=== PATIENT | male | born 1970 | race Caucasian/White ===

== ENCOUNTER 2020-12-17 18:41 | Inpatient (IN) | payer BC ==
[2020-12-17] MEDS ORDERED: Ondansetron PF 4 MG/2 ML Vial IVP PRN (20:46)
[2020-12-17] MEDS ORDERED: Guaifenesin DM 100-10/5 ML UDCUP PO PRN (20:46)
[2020-12-17] MEDS ORDERED: Ondansetron ODT 4 MG TAB PO PRN (20:46)
[2020-12-17] MEDS ORDERED: Senokot S 8.6-50 MG TAB PO PRN (20:46)
[2020-12-17] MEDS ORDERED: Calcium Carbonate 500 MG ChewTAB PO PRN (20:46)
[2020-12-17] MEDS ORDERED: Acetaminophen 325 MG TAB PO PRN (20:46)
[2020-12-17] MEDS ORDERED: Bisacodyl 5 MG TAB PO PRN (20:46)
[2020-12-17] MEDS ORDERED: Dextrose 50% Abboject 50 ML SYRINGE SLOW IVP PRN (21:01)
[2020-12-17] MEDS ORDERED: Dextrose 5% in Water 1,000 ML IV PRN (21:01)
[2020-12-17 22:20] VITALS: BMI 35.3
[2020-12-17 22:25] LABS: Anion Gap 13 mmol/L (10-20); BUN (Urea Nitrogen) 12 mg/dL (8.4-25.7); Calc. Creatinine Clearance 215 mL/min (70-130); Calcium 8.5 mg/dL (7.8-10.44); Carbon Dioxide 29 mmol/L (22-29); Chloride 99 mmol/L (98-107); Glucose 238 mg/dL (70-105); Magnesium 1.6 mg/dL (1.6-2.6); Potassium 3.6 mmol/L (3.5-5.1); Sodium 137 mmol/L (136-145)
[2020-12-17] MEDS ORDERED: Zolpidem Tartrate 5 MG TAB PO SCH (23:00)
[2020-12-17] MEDS ORDERED: Gabapentin 300 MG CAP PO SCH ×2 (23:00→23:15)
[2020-12-17] MEDS: Melatonin 3 MG TAB PO SCH (23:10)
[2020-12-18] MEDS: HumaLOG 300 UNITS/3 ML VIAL SC PRN ×4 (05:33→20:34)
[2020-12-18 06:24] LABS: #Lymphocytes 2.8 thou/uL (1.20-3.40); #Neutrophils 6.3 thou/uL (1.40-6.50); %Basophils 0.2 % (0.0-1.0); %Eosinophils 0.4 % (0.0-10.0); %Lymphocytes 27.4 % (21.0-51.0); Hemoglobin 12.8 g/dL (14.0-18.0); Mean Corpuscular HGB CONC 32.2 g/dL (32.0-36.0); Mean Corpuscular Hemoglobin 29.8 pg (27.0-31.0); Mean Corpuscular Volume 92.6 fL (78.0-98.0); Platelet Count 632 thou/uL (130-400); Red Blood Cell (RBC) Count 4.28 mill/uL (4.70-6.10); White Blood Cell (WBC) Count 10.2 thou/uL (4.8-10.8)
[2020-12-18 06:37] LABS: Anion Gap 13 mmol/L (10-20); BUN (Urea Nitrogen) 11 mg/dL (8.4-25.7); Calc. Creatinine Clearance 226 mL/min (70-130); Calcium 8.4 mg/dL (7.8-10.44); Carbon Dioxide 30 mmol/L (22-29); Chloride 99 mmol/L (98-107); Glucose 207 mg/dL (70-105); Potassium 3.5 mmol/L (3.5-5.1); Sodium 138 mmol/L (136-145)
[2020-12-18 06:49] LABS: Bacteria/HPF None Seen HPF (None Seen); Bilirubin Negative (Negative); Blood, Urine Negative (Negative); Clarity Clear (Clear); Glucose, Urine (Dipstick) 100 mg/dL (Negative); Ketone, Urine Negative (Negative); Leukocyte 75 Leu/uL (Negative); Nitrite Negative (Negative); Protein, Urine (Dipstick) 20 mg/dL (Neg-Trace); RBC/HPF 0-3 HPF (0-3); Specific Gravity, Urine 1.032 (1.002-1.036); Squamous Epithelial 0-3 HPF (0-3); Urobilinogen 3 mg/dL (Less than 2); WBC/HPF 21-50 HPF (0-3)
[2020-12-18] MEDS: DULoxetine 60 MG CAP PO SCH (08:25)
[2020-12-18] MEDS: Cholecalciferol 1,000 UNITS (25 MCG) TAB PO SCH (08:25)
[2020-12-18] MEDS: Gabapentin 300 MG CAP PO SCH ×2 (08:25→20:32)
[2020-12-18] MEDS: Multivitamin W/ Minerals 1 TAB PO SCH (08:26)
[2020-12-18] MEDS: Tamsulosin HCl 0.4 MG CAP PO SCH (08:26)
[2020-12-18] MEDS: METHadone HCl 10 MG TAB PO SCH (08:26)
[2020-12-18] MEDS: Losartan 25 MG TAB PO SCH (08:26)
[2020-12-18] MEDS: Aspirin 81 mg Enteric Coated Tablet PO SCH (08:27)
[2020-12-18] MEDS: Benzonatate 100 MG CAP PO PRN (08:27)
[2020-12-18] MEDS: Zinc Sulfate 220 MG CAP PO SCH (08:27)
[2020-12-18] MEDS: Hydrochlorothiazide 25 MG TAB PO SCH (08:27)
[2020-12-18] MEDS: Ascorbic Acid 500 mg Chewable Tablet PO SCH (08:27)
[2020-12-18] MEDS: Enoxaparin Sodium 40 MG/0.4 ML SYRINGE SC SCH (08:28)
[2020-12-18] MEDS ORDERED: Dexamethasone 4 mg/ml Vial SLOW IVP SCH (09:00)
[2020-12-18] MEDS: metFORMIN 500 MG TAB PO SCH (16:15)
[2020-12-18] MEDS ORDERED: cefTRIAXone\\ROCEPHIN 2 GM in Sodium Chloride 0.9% 100 ML IVPB SCH (17:00)
[2020-12-18] MEDS: Azithromycin 500 MG in Sodium Chloride 0.9% 250 ML 250 ML IVPB SCH (17:45)
[2020-12-18] MEDS: Zolpidem Tartrate 5 MG TAB PO SCH (20:33)
[2020-12-18] MEDS: Melatonin 3 MG TAB PO SCH (20:34)
[2020-12-19] MEDS: Albuterol 200 PUFF (6.7GM INHALER) INH PRN ×2 (03:22→14:00)
[2020-12-19] MEDS: Benzonatate 100 MG CAP PO PRN (03:22)
[2020-12-19] MEDS: HumaLOG 300 UNITS/3 ML VIAL SC PRN ×4 (05:58→21:05)
[2020-12-19] MEDS: Zinc Sulfate 220 MG CAP PO SCH (08:23)
[2020-12-19] MEDS: Hydrochlorothiazide 25 MG TAB PO SCH (08:23)
[2020-12-19] MEDS: Cholecalciferol 1,000 UNITS (25 MCG) TAB PO SCH (08:23)
[2020-12-19] MEDS: Multivitamin W/ Minerals 1 TAB PO SCH (08:23)
[2020-12-19] MEDS: DULoxetine 60 MG CAP PO SCH (08:23)
[2020-12-19] MEDS: Aspirin 81 mg Enteric Coated Tablet PO SCH (08:23)
[2020-12-19] MEDS: Ascorbic Acid 500 mg Chewable Tablet PO SCH (08:23)
[2020-12-19] MEDS: METHadone HCl 10 MG TAB PO SCH (08:24)
[2020-12-19] MEDS: Tamsulosin HCl 0.4 MG CAP PO SCH (08:24)
[2020-12-19] MEDS: Losartan 25 MG TAB PO SCH (08:24)
[2020-12-19] MEDS: Gabapentin 300 MG CAP PO SCH ×2 (08:25→21:04)
[2020-12-19] MEDS: metFORMIN 500 MG TAB PO SCH ×2 (08:25→16:24)
[2020-12-19] MEDS: Dexamethasone 4 MG TAB PO SCH (08:25)
[2020-12-19] MEDS: Enoxaparin Sodium 40 MG/0.4 ML SYRINGE SC SCH (08:26)
[2020-12-19] MEDS: Azithromycin 500 MG in Sodium Chloride 0.9% 250 ML 250 ML IVPB SCH (17:40)
[2020-12-19] MEDS: Melatonin 3 MG TAB PO SCH (21:04)
[2020-12-19] MEDS: Zolpidem Tartrate 5 MG TAB PO SCH (21:05)
[2020-12-20] MEDS: HumaLOG 300 UNITS/3 ML VIAL SC PRN ×4 (05:47→21:31)
[2020-12-20] MEDS: Cholecalciferol 1,000 UNITS (25 MCG) TAB PO SCH (09:35)
[2020-12-20] MEDS: Enoxaparin Sodium 40 MG/0.4 ML SYRINGE SC SCH (09:35)
[2020-12-20] MEDS: Gabapentin 300 MG CAP PO SCH ×2 (09:36→21:19)
[2020-12-20] MEDS: Zinc Sulfate 220 MG CAP PO SCH (09:37)
[2020-12-20] MEDS: Losartan 25 MG TAB PO SCH (09:37)
[2020-12-20] MEDS: Tamsulosin HCl 0.4 MG CAP PO SCH (09:37)
[2020-12-20] MEDS: Dexamethasone 4 MG TAB PO SCH (09:37)
[2020-12-20] MEDS: DULoxetine 60 MG CAP PO SCH (09:37)
[2020-12-20] MEDS: metFORMIN 500 MG TAB PO SCH ×2 (09:37→16:37)
[2020-12-20] MEDS: Bacitracin 1 PK TOP SCH (09:38)
[2020-12-20] MEDS: Ascorbic Acid 500 mg Chewable Tablet PO SCH (09:38)
[2020-12-20] MEDS: Hydrochlorothiazide 25 MG TAB PO SCH (09:38)
[2020-12-20] MEDS: Multivitamin W/ Minerals 1 TAB PO SCH (09:38)
[2020-12-20] MEDS: Aspirin 81 mg Enteric Coated Tablet PO SCH (09:39)
[2020-12-20] MEDS: METHadone HCl 10 MG TAB PO SCH (11:49)
[2020-12-20] MEDS: Zolpidem Tartrate 5 MG TAB PO SCH (21:21)
[2020-12-20] MEDS: Melatonin 3 MG TAB PO SCH (21:21)
[2020-12-21] MEDS: Dexamethasone 4 MG TAB PO SCH (09:04)
[2020-12-21] MEDS: metFORMIN 500 MG TAB PO SCH (09:05)
[2020-12-21] MEDS: Ascorbic Acid 500 mg Chewable Tablet PO SCH (09:06)
[2020-12-21] MEDS: Bacitracin 1 PK TOP SCH (09:06)
[2020-12-21] MEDS: Aspirin 81 mg Enteric Coated Tablet PO SCH (09:06)
[2020-12-21] MEDS: Cholecalciferol 1,000 UNITS (25 MCG) TAB PO SCH (09:07)
[2020-12-21] MEDS: DULoxetine 60 MG CAP PO SCH (09:08)
[2020-12-21] MEDS: Hydrochlorothiazide 25 MG TAB PO SCH (09:08)
[2020-12-21] MEDS: Gabapentin 300 MG CAP PO SCH (09:08)
[2020-12-21] MEDS: Enoxaparin Sodium 40 MG/0.4 ML SYRINGE SC SCH (09:08)
[2020-12-21] MEDS: Tamsulosin HCl 0.4 MG CAP PO SCH (09:09)
[2020-12-21] MEDS: Losartan 25 MG TAB PO SCH (09:09)
[2020-12-21] MEDS: Zinc Sulfate 220 MG CAP PO SCH (09:09)
[2020-12-21] MEDS: METHadone HCl 10 MG TAB PO SCH (09:10)
[2020-12-21] MEDS: Multivitamin W/ Minerals 1 TAB PO SCH (09:10)
[2020-12-21] MEDS: HumaLOG 300 UNITS/3 ML VIAL SC PRN (12:27)
[2020-12-21 15:50] VITALS: BP 156/81; TEMP 98
== END 2020-12-21 15:49 | disposition home or self-care (01) | DRG 177 ==
LOC: T4-A 20:29
PROVIDERS: ADMIT Internal Medicine; ATTEND Internal Medicine
PROC: 8E0ZXY6 Isolation (ICD-10-PCS; principal; 2020-12-17)
DX: U07.1 COVID-19 (principal); J96.01 Acute respiratory failure with hypoxia; J12.82 Pneumonia due to coronavirus disease 2019; E87.6 Hypokalemia; G47.33 Obstructive sleep apnea (adult) (pediatric); J45.909 Unspecified asthma, uncomplicated; M54.9 Dorsalgia, unspecified; E11.40 Type 2 diabetes mellitus with diabetic neuropathy, unspecified; I10 Essential (primary) hypertension; F41.9 Anxiety disorder, unspecified; G89.4 Chronic pain syndrome; N40.0 Benign prostatic hyperplasia without lower urinary tract symptoms; F32.9 Major depressive disorder, single episode, unspecified; Z79.82 Long term (current) use of aspirin
CPT/HCPCS: 36415; 36416; 80048; 81001; 82728; 83735; 85025; 85379; 86140; J0456; J0696; J1100; J1650; J1815; J3490; J7050; J8540

== ENCOUNTER 2021-03-09 19:11 | Emergency (ER) | payer BC ==
[2021-03-09 20:05] LABS: #Basophils 0.1 thou/uL (0.0-0.2); #Eosinphils 0.1 thou/uL (0.0-0.7); #Lymphocytes 2.4 thou/uL (1.20-3.40); #Neutrophils 7.6 thou/uL (1.40-6.50); %Basophils 0.8 % (0.0-1.0); %Eosinophils 0.9 % (0.0-10.0); %Lymphocytes 21.2 % (21.0-51.0); %Monocytes 8.8 % (0.0-10.0); %Neutrophils 68.4 % (42.0-75.0); Mean Corpuscular HGB CONC 33.3 g/dL (32.0-36.0); Mean Corpuscular Hemoglobin 30.1 pg (27.0-31.0); Mean Corpuscular Volume 90.5 fL (78.0-98.0); Mean Platelet Volume 6.3 fL (7.4-10.4); Platelet Count 355 thou/uL (130-400); RBC Distribution Width 12.8 % (11.5-14.5); White Blood Cell (WBC) Count 11.1 thou/uL (4.8-10.8)
[2021-03-09 20:26] LABS: ALT (SGPT) 16 U/L (8-55); AST (SGOT) 14 U/L (5-34); Alkaline Phosphatase 87 U/L (40-110); Anion Gap 13 mmol/L (10-20); BUN (Urea Nitrogen) 11 mg/dL (8.4-25.7); Bilirubin, Total 0.4 mg/dL (0.2-1.2); Calc. Creatinine Clearance 0 mL/min (70-130); Carbon Dioxide 29 mmol/L (22-29); Chloride 96 mmol/L (98-107); Globulin 3.9 g/dL (2.4-3.5); Glucose 209 mg/dL (70-105); Potassium 3.9 mmol/L (3.5-5.1); Protein, Total 7.9 g/dL (6.0-8.3); Sodium 134 mmol/L (136-145)
[2021-03-09] MEDS ORDERED: Cefepime 2 GM VIAL ONE (20:37)
[2021-03-09] MEDS ORDERED: Bupivacaine 0.5% 10 ML VIAL ONE (21:07)
[2021-03-09 22:09] LABS: Bilirubin Negative (Negative); Blood, Urine Negative (Negative); Glucose, Urine (Dipstick) Negative (Negative); Ketone, Urine Negative (Negative); Leukocyte Negative (Negative); Nitrite Negative (Negative); Protein, Urine (Dipstick) Negative (Neg-Trace); Urobilinogen 0.2 mg/dL (Less than 2)
[2021-03-09 22:11] LABS: Clarity Clear (Clear)
== END 2021-03-09 22:27 | disposition home or self-care (01) ==
LOC: ERS 19:11
DX: L03.011 Cellulitis of right finger (principal); E11.622 Type 2 diabetes mellitus with other skin ulcer; L98.499 Non-pressure chronic ulcer of skin of other sites with unspecified severity; L03.211 Cellulitis of face; R51.9 Headache, unspecified; E11.40 Type 2 diabetes mellitus with diabetic neuropathy, unspecified; J45.909 Unspecified asthma, uncomplicated; I10 Essential (primary) hypertension; Z79.4 Long term (current) use of insulin; Z79.899 Other long term (current) drug therapy
CPT/HCPCS: 26011; 36415; 36416; 70450; 80053; 81003; 82010; 83605; 85025; 85652; 86140; 87040; 96365; J0692; J3490

== ENCOUNTER 2021-08-12 18:50 | Inpatient (IN) | payer BC ==
[~2021-08-12 18:50] MED LIST: Heparin 1,000 UNITS/ML VIAL ONE
[2021-08-12 19:23] LABS: #Basophils 0.1 thou/uL (0.0-0.2); #Eosinphils 0.1 thou/uL (0.0-0.7); #Lymphocytes 2.4 thou/uL (1.20-3.40); #Monocytes 1.2 thou/uL (0.11-0.59); #Neutrophils 13.1 thou/uL (1.40-6.50); %Basophils 0.4 % (0.0-1.0); %Eosinophils 0.8 % (0.0-10.0); %Lymphocytes 14.5 % (21.0-51.0); %Neutrophils 77.4 % (42.0-75.0); Hemoglobin 13.9 g/dL (14.0-18.0); Mean Corpuscular HGB CONC 32.6 g/dL (32.0-36.0); Mean Corpuscular Hemoglobin 30.4 pg (27.0-31.0); Mean Corpuscular Volume 93.2 fL (78.0-98.0); Mean Platelet Volume 6.8 fL (7.4-10.4); Platelet Count 283 thou/uL (130-400); Red Blood Cell (RBC) Count 4.58 mill/uL (4.70-6.10); White Blood Cell (WBC) Count 16.9 thou/uL (4.8-10.8)
[2021-08-12 19:33] LABS: INR-International Normal Ratio 1.1; PTT 35.7 sec (22.9-36.1); Prothrombin Time 14.2 sec (12.0-14.7)
[2021-08-12 19:45] LABS: ALT (SGPT) 19 U/L (8-55); AST (SGOT) 18 U/L (5-34); Albumin 3.8 g/dL (3.5-5.0); Alkaline Phosphatase 107 U/L (40-110); Anion Gap 14 mmol/L (10-20); BUN (Urea Nitrogen) 28 mg/dL (8.4-25.7); Bilirubin, Total 0.6 mg/dL (0.2-1.2); Calc. Creatinine Clearance 0 mL/min (70-130); Calcium 9.7 mg/dL (7.8-10.44); Carbon Dioxide 30 mmol/L (22-29); Chloride 93 mmol/L (98-107); Globulin 4.2 g/dL (2.4-3.5); Glucose 203 mg/dL (70-105); Potassium 3.7 mmol/L (3.5-5.1); Sodium 133 mmol/L (136-145)
[2021-08-12] MEDS ORDERED: Cefepime 2 GM VIAL ONE (20:02)
[2021-08-12 20:14] LABS: Bilirubin Negative (Negative); Blood, Urine Negative (Negative); Clarity Clear (Clear); Glucose, Urine (Dipstick) Normal (Negative); Ketone, Urine 10 mg/dL (Negative); Leukocyte Negative Leu/uL (Negative); Nitrite Negative (Negative); Protein, Urine (Dipstick) 20 mg/dL (Neg-Trace); Specific Gravity, Urine 1.026 (1.002-1.036); Urobilinogen Normal mg/dL (Less than 2); pH, Urine 5.5 (5.0-9.0)
[2021-08-12] MEDS ORDERED: Acetaminophen 500 MG TAB ONE (20:24)
[2021-08-12] MEDS ORDERED: Vancomycin 1 GM/200 ML BAG ONE (20:34)
[2021-08-12] MEDS ORDERED: Ketorolac Tromethamine 30 MG/ML VIAL ONE (21:19)
[2021-08-12] MEDS ORDERED: Ondansetron PF 4 MG/2 ML Vial IVP PRN (23:33)
[2021-08-12] MEDS ORDERED: Dextrose 5% in Water 1,000 ML IV PRN (23:35)
[2021-08-12] MEDS ORDERED: Dextrose 50% Abboject 50 ML SYRINGE SLOW IVP PRN (23:35)
[2021-08-12] MEDS ORDERED: HumaLOG 300 UNITS/3 ML VIAL SC PRN (23:35)
[2021-08-12] MEDS ORDERED: Sodium Chloride 0.9% 1,000 ML IV SCH (23:45)
[2021-08-13] MEDS: Acetaminophen 325 MG TAB PO PRN ×3 (01:31→15:53)
[2021-08-13] MEDS: VANCOMYCIN 2 GRAM/400 ML BAG 2 GM in Premix Bag 1 BAG IVPB SCH ×3 (01:49→17:30)
[2021-08-13 06:48] LABS: #Eosinphils 0.1 thou/uL (0.0-0.7); #Lymphocytes 3.1 thou/uL (1.20-3.40); #Monocytes 1.5 thou/uL (0.11-0.59); #Neutrophils 13.1 thou/uL (1.40-6.50); %Basophils 0.1 % (0.0-1.0); %Eosinophils 0.6 % (0.0-10.0); %Lymphocytes 17.3 % (21.0-51.0); %Monocytes 8.3 % (0.0-10.0); %Neutrophils 73.8 % (42.0-75.0); Hemoglobin 13.1 g/dL (14.0-18.0); Mean Corpuscular HGB CONC 33.5 g/dL (32.0-36.0); Mean Corpuscular Hemoglobin 30.9 pg (27.0-31.0); Mean Corpuscular Volume 92.1 fL (78.0-98.0); Platelet Count 276 thou/uL (130-400); RBC Distribution Width 12.8 % (11.5-14.5); Red Blood Cell (RBC) Count 4.23 mill/uL (4.70-6.10); White Blood Cell (WBC) Count 17.8 thou/uL (4.8-10.8)
[2021-08-13 07:04] LABS: Anion Gap 17 mmol/L (10-20); BUN (Urea Nitrogen) 23 mg/dL (8.4-25.7); Calc. Creatinine Clearance 187 mL/min (70-130); Calcium 9.3 mg/dL (7.8-10.44); Carbon Dioxide 23 mmol/L (22-29); Chloride 98 mmol/L (98-107); Glucose 183 mg/dL (70-105); Potassium 3.6 mmol/L (3.5-5.1); Sodium 134 mmol/L (136-145)
[2021-08-13] MEDS: Cefepime 2 GM in Sodium Chloride 0.9% 100 ML IVPB SCH ×2 (09:19→22:18)
[2021-08-13 11:33] LABS: SARS-CoV-2 PCR by NAA Not Detected (NotDetected)
[2021-08-13] MEDS: HumaLOG 300 UNITS/3 ML VIAL SC PRN (12:05)
[2021-08-13] MEDS: metFORMIN 500 MG TAB PO SCH (17:43)
[2021-08-13] MEDS ORDERED: Bacitracin Zinc Ointment 30 gm TUBE ONE (18:26)
[2021-08-13] MEDS ORDERED: Bupivacaine PF 0.5% 30 ML VIAL ONE (18:26)
[2021-08-13] MEDS ORDERED: Neomycin-Polymyxin 1 ML AMP ONE (18:26)
[2021-08-13] MEDS ORDERED: Fentanyl 100 MCG/2 ML VIAL ONE ×2 (19:19→19:23)
[2021-08-13] MEDS ORDERED: Ketamine 50 MG/ML (10ML VIAL) ONE (19:23)
[2021-08-13] MEDS ORDERED: Midazolam HCl 2 mg/2 ml Vial ONE (19:23)
[2021-08-13] MEDS ORDERED: HYDROmorphone 2 MG/ML VIAL ONE (19:23)
[2021-08-13] MEDS ORDERED: PHENYLEPHRINE-NS 100 MCG/ML 10 ML SYRINGE ONE ×2 (19:39→20:08)
[2021-08-13] MEDS ORDERED: Metoprolol Tartrate 5 MG/5 ML VIAL ONE (19:39)
[2021-08-13] MEDS ORDERED: Albuterol Sulfate HFA (OR ONLY) ONE (19:39)
[2021-08-13] MEDS ORDERED: Ondansetron PF 4 MG/2 ML Vial ONE (19:39)
[2021-08-13] MEDS ORDERED: Dexamethasone 20 MG/5 ML VIAL ONE (19:39)
[2021-08-13] MEDS ORDERED: Succinylcholine 200 MG/10 ml SYRINGE FS ONE (19:39)
[2021-08-13] MEDS ORDERED: Glycopyrrolate 0.2 MG/ML 5 ML SYRINGE ONE (19:39)
[2021-08-13] MEDS ORDERED: Lidocaine 1% PF 5 ML VIAL ONE (19:39)
[2021-08-13] MEDS ORDERED: ePHEDrine 50 MG/ML VIAL ONE (19:39)
[2021-08-13] MEDS ORDERED: PROPOFOL 200 MG/20 ML VIAL ONE (19:39)
[2021-08-13] MEDS ORDERED: Phenylephrine 10 MG/ML VIAL ONE (20:09)
[2021-08-13] MEDS ORDERED: Promethazine HCl 25 MG/ML VIAL IVPB PRN (20:20)
[2021-08-13] MEDS ORDERED: HYDROmorphone 2 MG/ML VIAL SLOW IVP PRN (20:20)
[2021-08-13] MEDS ORDERED: Ondansetron HCl/PF 4 MG/2 ML Vial IVP PRN (20:20)
[2021-08-13] MEDS ORDERED: Promethazine HCl 25 MG/ML VIAL IM PRN (20:20)
[2021-08-13] MEDS: Gabapentin 300 MG CAP PO SCH (22:23)
[2021-08-13] MEDS: Lantus 1000 UNITS/10 ML VIAL SC SCH (22:49)
[2021-08-14 01:30] LABS: Vancomycin, Trough 17.1 ug/mL
[2021-08-14] MEDS: VANCOMYCIN 2 GRAM/400 ML BAG 2 GM in Premix Bag 1 BAG IVPB SCH ×3 (02:23→16:33)
[2021-08-14] MEDS: HumaLOG 300 UNITS/3 ML VIAL SC PRN ×2 (05:22→11:35)
[2021-08-14 07:17] LABS: #Lymphocytes 1.6 thou/uL (1.20-3.40); #Monocytes 0.9 thou/uL (0.11-0.59); #Neutrophils 10.7 thou/uL (1.40-6.50); %Eosinophils 0.2 % (0.0-10.0); %Lymphocytes 12.1 % (21.0-51.0); %Monocytes 6.7 % (0.0-10.0); Hemoglobin 11.7 g/dL (14.0-18.0); Mean Corpuscular Hemoglobin 31.3 pg (27.0-31.0); Mean Corpuscular Volume 92.2 fL (78.0-98.0); Mean Platelet Volume 6.8 fL (7.4-10.4); Platelet Count 236 thou/uL (130-400); RBC Distribution Width 12.5 % (11.5-14.5); Red Blood Cell (RBC) Count 3.73 mill/uL (4.70-6.10); White Blood Cell (WBC) Count 13.3 thou/uL (4.8-10.8)
[2021-08-14 07:36] LABS: Anion Gap 11 mmol/L (10-20); BUN (Urea Nitrogen) 10 mg/dL (8.4-25.7); Calc. Creatinine Clearance 232 mL/min (70-130); Calcium 8.6 mg/dL (7.8-10.44); Carbon Dioxide 27 mmol/L (22-29); Chloride 97 mmol/L (98-107); Glucose 254 mg/dL (70-105); Sodium 131 mmol/L (136-145)
[2021-08-14] MEDS: Losartan 25 MG TAB PO SCH (08:40)
[2021-08-14] MEDS: Cefepime 2 GM in Sodium Chloride 0.9% 100 ML IVPB SCH ×2 (08:40→20:09)
[2021-08-14] MEDS: metFORMIN 500 MG TAB PO SCH ×2 (08:40→16:32)
[2021-08-14] MEDS: Aspirin 81 mg Enteric Coated Tablet PO SCH (08:41)
[2021-08-14] MEDS: Hydrochlorothiazide 25 MG TAB PO SCH (08:41)
[2021-08-14] MEDS: Lantus 1000 UNITS/10 ML VIAL SC SCH ×2 (08:42→20:11)
[2021-08-14] MEDS: DULoxetine 60 MG CAP PO SCH (08:42)
[2021-08-14] MEDS: Gabapentin 300 MG CAP PO SCH ×2 (08:42→20:10)
[2021-08-14] MEDS: Tamsulosin HCl 0.4 MG CAP PO SCH (08:42)
[2021-08-14] MEDS ORDERED: Dulaglutide [Trulicity] 0.75 MG/0.5 ML Pen.Injctr SC SCH (09:00)
[2021-08-14] MEDS: Acetaminophen 325 MG TAB PO PRN (09:28)
[2021-08-14] MEDS ORDERED: Zolpidem Tartrate 5 MG TAB PO PRN (10:32)
[2021-08-15] MEDS: VANCOMYCIN 2 GRAM/400 ML BAG 2 GM in Premix Bag 1 BAG IVPB SCH ×3 (01:08→17:52)
[2021-08-15 07:03] LABS: #Eosinphils 0.3 thou/uL (0.0-0.7); #Lymphocytes 3.5 thou/uL (1.20-3.40); #Neutrophils 4.9 thou/uL (1.40-6.50); %Basophils 0.4 % (0.0-1.0); %Eosinophils 3.2 % (0.0-10.0); %Lymphocytes 36.1 % (21.0-51.0); %Neutrophils 50.3 % (42.0-75.0); Hemoglobin 11.7 g/dL (14.0-18.0); Mean Corpuscular HGB CONC 33.2 g/dL (32.0-36.0); Mean Corpuscular Volume 93.4 fL (78.0-98.0); Mean Platelet Volume 6.7 fL (7.4-10.4); Platelet Count 260 thou/uL (130-400); RBC Distribution Width 12.5 % (11.5-14.5); Red Blood Cell (RBC) Count 3.78 mill/uL (4.70-6.10); White Blood Cell (WBC) Count 9.7 thou/uL (4.8-10.8)
[2021-08-15 07:18] LABS: Anion Gap 11 mmol/L (10-20); BUN (Urea Nitrogen) 10 mg/dL (8.4-25.7); Calc. Creatinine Clearance 250 mL/min (70-130); Calcium 8.6 mg/dL (7.8-10.44); Carbon Dioxide 29 mmol/L (22-29); Chloride 100 mmol/L (98-107); Glucose 129 mg/dL (70-105); Potassium 3.5 mmol/L (3.5-5.1); Sodium 136 mmol/L (136-145)
[2021-08-15] MEDS: DULoxetine 60 MG CAP PO SCH (08:56)
[2021-08-15] MEDS: Aspirin 81 mg Enteric Coated Tablet PO SCH (08:56)
[2021-08-15] MEDS: Hydrochlorothiazide 25 MG TAB PO SCH (08:56)
[2021-08-15] MEDS: metFORMIN 500 MG TAB PO SCH ×2 (08:56→17:51)
[2021-08-15] MEDS: Tamsulosin HCl 0.4 MG CAP PO SCH (08:56)
[2021-08-15] MEDS: Acetaminophen 325 MG TAB PO PRN ×2 (08:56→21:36)
[2021-08-15] MEDS: Losartan 25 MG TAB PO SCH (08:57)
[2021-08-15] MEDS: Cefepime 2 GM in Sodium Chloride 0.9% 100 ML IVPB SCH (08:58)
[2021-08-15] MEDS: Gabapentin 300 MG CAP PO SCH ×2 (09:00→21:36)
[2021-08-15] MEDS: Lantus 1000 UNITS/10 ML VIAL SC SCH ×2 (09:07→22:00)
[2021-08-15] MEDS: Morphine 4 MG/ML VIAL SLOW IVP PRN (16:05)
[2021-08-15] MEDS: Meperidine HCl/PF 25 MG/ML VIAL IM PRN (16:25)
[2021-08-15] MEDS: HumaLOG 300 UNITS/3 ML VIAL SC PRN (17:52)
[2021-08-15] MEDS ORDERED: ceFAZolin Sodium/D5W 2 GM in Premix Bag 1 BAG IVPB SCH (18:15)
[2021-08-15] MEDS: Zolpidem Tartrate 5 MG TAB PO SCH (21:37)
[2021-08-16] MEDS: ceFAZolin Sodium/D5W 2 GM in Premix Bag 1 BAG IVPB SCH ×3 (02:04→17:10)
[2021-08-16] MEDS: Acetaminophen 325 MG TAB PO PRN ×2 (02:06→06:27)
[2021-08-16] MEDS: Aspirin 81 mg Enteric Coated Tablet PO SCH (09:01)
[2021-08-16] MEDS: Gabapentin 300 MG CAP PO SCH ×2 (09:03→20:57)
[2021-08-16] MEDS: Tamsulosin HCl 0.4 MG CAP PO SCH (09:03)
[2021-08-16] MEDS: Hydrochlorothiazide 25 MG TAB PO SCH (09:03)
[2021-08-16] MEDS: DULoxetine 60 MG CAP PO SCH (09:03)
[2021-08-16] MEDS: metFORMIN 500 MG TAB PO SCH ×2 (09:04→17:10)
[2021-08-16] MEDS: Losartan 25 MG TAB PO SCH (09:04)
[2021-08-16] MEDS: Lantus 1000 UNITS/10 ML VIAL SC SCH ×2 (09:08→20:59)
[2021-08-16] MEDS: HumaLOG 300 UNITS/3 ML VIAL SC PRN (17:10)
[2021-08-16] MEDS: Zolpidem Tartrate 5 MG TAB PO SCH (20:58)
[2021-08-16] MEDS: Morphine 4 MG/ML VIAL SLOW IVP PRN (21:08)
[2021-08-16] MEDS: Meperidine HCl/PF 25 MG/ML VIAL IM PRN (21:33)
[2021-08-17] MEDS: Acetaminophen 325 MG TAB PO PRN (00:38)
[2021-08-17] MEDS: ceFAZolin Sodium/D5W 2 GM in Premix Bag 1 BAG IVPB SCH ×3 (02:02→22:58)
[2021-08-17] MEDS: metFORMIN 500 MG TAB PO SCH (09:04)
[2021-08-17] MEDS: Gabapentin 300 MG CAP PO SCH ×2 (09:27→21:06)
[2021-08-17] MEDS: Aspirin 81 mg Enteric Coated Tablet PO SCH (09:28)
[2021-08-17] MEDS: Hydrochlorothiazide 25 MG TAB PO SCH (09:28)
[2021-08-17] MEDS: Losartan 25 MG TAB PO SCH (09:28)
[2021-08-17] MEDS: DULoxetine 60 MG CAP PO SCH (09:28)
[2021-08-17] MEDS: Lantus 1000 UNITS/10 ML VIAL SC SCH ×2 (09:29→21:24)
[2021-08-17] MEDS: Tamsulosin HCl 0.4 MG CAP PO SCH (09:29)
[2021-08-17] MEDS: Morphine 4 MG/ML VIAL SLOW IVP PRN ×3 (09:39→19:33)
[2021-08-17] MEDS: Promethazine HCl 25 MG/ML VIAL IM PRN (21:07)
[2021-08-17] MEDS: Zolpidem Tartrate 5 MG TAB PO SCH (21:07)
[2021-08-17] MEDS: Meperidine HCl/PF 25 MG/ML VIAL IM PRN (21:08)
[2021-08-18] MEDS: Morphine 4 MG/ML VIAL SLOW IVP PRN ×4 (00:21→15:05)
[2021-08-18] MEDS: HumaLOG 300 UNITS/3 ML VIAL SC PRN ×3 (05:06→17:14)
[2021-08-18 05:47] LABS: #Basophils 0.1 thou/uL (0.0-0.2); #Eosinphils 0.3 thou/uL (0.0-0.7); #Lymphocytes 3.7 thou/uL (1.20-3.40); #Monocytes 1.1 thou/uL (0.11-0.59); #Neutrophils 5.6 thou/uL (1.40-6.50); %Basophils 0.7 % (0.0-1.0); %Eosinophils 2.8 % (0.0-10.0); %Lymphocytes 34.3 % (21.0-51.0); %Monocytes 10.1 % (0.0-10.0); %Neutrophils 52.2 % (42.0-75.0); Hemoglobin 12.6 g/dL (14.0-18.0); Mean Corpuscular HGB CONC 33.4 g/dL (32.0-36.0); Mean Corpuscular Hemoglobin 30.7 pg (27.0-31.0); Mean Platelet Volume 6.3 fL (7.4-10.4); Platelet Count 396 thou/uL (130-400); RBC Distribution Width 12.5 % (11.5-14.5); White Blood Cell (WBC) Count 10.6 thou/uL (4.8-10.8)
[2021-08-18] MEDS ORDERED: ceFAZolin Sodium/D5W 2 GM in Premix Bag 1 BAG IVPB SCH (06:00)
[2021-08-18 06:08] LABS: Anion Gap 13 mmol/L (10-20); BUN (Urea Nitrogen) 17 mg/dL (8.4-25.7); Calc. Creatinine Clearance 222 mL/min (70-130); Calcium 9.7 mg/dL (7.8-10.44); Carbon Dioxide 31 mmol/L (22-29); Chloride 98 mmol/L (98-107); Glucose 198 mg/dL (70-105); Potassium 3.7 mmol/L (3.5-5.1); Sodium 138 mmol/L (136-145)
[2021-08-18] MEDS: ceFAZolin Sodium/D5W 2 GM in Premix Bag 1 BAG IVPB SCH ×3 (07:29→17:17)
[2021-08-18] MEDS: Tamsulosin HCl 0.4 MG CAP PO SCH (08:39)
[2021-08-18] MEDS: Hydrochlorothiazide 25 MG TAB PO SCH (08:41)
[2021-08-18] MEDS: Gabapentin 300 MG CAP PO SCH ×2 (08:41→20:18)
[2021-08-18] MEDS: DULoxetine 60 MG CAP PO SCH (08:41)
[2021-08-18] MEDS: Aspirin 81 mg Enteric Coated Tablet PO SCH (08:41)
[2021-08-18] MEDS: Losartan 25 MG TAB PO SCH (08:42)
[2021-08-18] MEDS: Lantus 1000 UNITS/10 ML VIAL SC SCH ×2 (08:42→20:23)
[2021-08-18] MEDS ORDERED: Midazolam HCl 2 mg/2 ml Vial ONE (09:34)
[2021-08-18] MEDS ORDERED: Fentanyl 100 MCG/2 ML VIAL ONE ×3 (09:34→12:16)
[2021-08-18] MEDS ORDERED: Neomycin-Polymyxin 1 ML AMP ONE (09:44)
[2021-08-18] MEDS ORDERED: Bacitracin Zinc Ointment 30 gm TUBE ONE (09:44)
[2021-08-18] MEDS ORDERED: Bupivacaine 0.25% HCL 30 ML VIAL ONE (09:44)
[2021-08-18] MEDS ORDERED: Lidocaine 1% PF 5 ML VIAL ONE (09:57)
[2021-08-18] MEDS ORDERED: Succinylcholine 200 MG/10 ml SYRINGE FS ONE (09:57)
[2021-08-18] MEDS ORDERED: Ondansetron PF 4 MG/2 ML Vial ONE (09:57)
[2021-08-18] MEDS ORDERED: PHENYLEPHRINE-NS 100 MCG/ML 10 ML SYRINGE ONE ×2 (09:57→10:48)
[2021-08-18] MEDS ORDERED: Glycopyrrolate 0.2 MG/ML 5 ML SYRINGE ONE (09:57)
[2021-08-18] MEDS ORDERED: Rocuronium Bromide 10 MG/ML (10ML VIAL) ONE (09:57)
[2021-08-18] MEDS ORDERED: Dexamethasone 20 MG/5 ML VIAL ONE (09:57)
[2021-08-18] MEDS ORDERED: PROPOFOL 200 MG/20 ML VIAL ONE (09:57)
[2021-08-18] MEDS ORDERED: Ondansetron HCl/PF 4 MG/2 ML Vial IVP PRN (10:39)
[2021-08-18] MEDS ORDERED: Promethazine HCl 25 MG/ML VIAL IM PRN (10:39)
[2021-08-18] MEDS ORDERED: Promethazine HCl 25 MG/ML VIAL IVPB PRN (10:39)
[2021-08-18] MEDS ORDERED: Mineral Oil Sterile 10 ML VIAL ONE (11:04)
[2021-08-18] MEDS: Meperidine HCl/PF 25 MG/ML VIAL IM PRN (17:15)
[2021-08-18] MEDS: Promethazine HCl 25 MG/ML VIAL IM PRN (17:15)
[2021-08-18] MEDS: HYDROcodone/Acetaminophen 10/325 mg Tablet PO SCH ×2 (17:16→20:19)
[2021-08-18] MEDS: cloNIDine 0.1 MG TAB PO SCH (20:18)
[2021-08-18] MEDS: Zolpidem Tartrate 5 MG TAB PO SCH (20:21)
[2021-08-19] MEDS: ceFAZolin Sodium/D5W 2 GM in Premix Bag 1 BAG IVPB SCH ×5 (00:37→23:58)
[2021-08-19] MEDS: HYDROcodone/Acetaminophen 10/325 mg Tablet PO PRN ×3 (00:38→21:33)
[2021-08-19] MEDS: Aspirin 81 mg Enteric Coated Tablet PO SCH (08:23)
[2021-08-19] MEDS: DULoxetine 60 MG CAP PO SCH (08:23)
[2021-08-19] MEDS: Losartan 25 MG TAB PO SCH (08:23)
[2021-08-19] MEDS: Gabapentin 300 MG CAP PO SCH ×2 (08:24→21:32)
[2021-08-19] MEDS: cloNIDine 0.1 MG TAB PO SCH ×2 (08:24→21:32)
[2021-08-19] MEDS: Tamsulosin HCl 0.4 MG CAP PO SCH (08:24)
[2021-08-19] MEDS: Hydrochlorothiazide 25 MG TAB PO SCH (08:25)
[2021-08-19] MEDS: Lantus 1000 UNITS/10 ML VIAL SC SCH ×2 (08:36→21:36)
[2021-08-19] MEDS: Zolpidem Tartrate 5 MG TAB PO SCH (21:35)
[2021-08-20] MEDS: ceFAZolin Sodium/D5W 2 GM in Premix Bag 1 BAG IVPB SCH ×3 (05:42→17:11)
[2021-08-20] MEDS: Lantus 1000 UNITS/10 ML VIAL SC SCH ×2 (08:24→21:08)
[2021-08-20] MEDS: cloNIDine 0.1 MG TAB PO SCH ×2 (08:27→21:04)
[2021-08-20] MEDS: Aspirin 81 mg Enteric Coated Tablet PO SCH (08:28)
[2021-08-20] MEDS: Gabapentin 300 MG CAP PO SCH ×2 (08:28→21:07)
[2021-08-20] MEDS: DULoxetine 60 MG CAP PO SCH (08:28)
[2021-08-20] MEDS: Hydrochlorothiazide 25 MG TAB PO SCH (08:29)
[2021-08-20] MEDS: Tamsulosin HCl 0.4 MG CAP PO SCH (08:29)
[2021-08-20] MEDS: Losartan 25 MG TAB PO SCH (08:29)
[2021-08-20 09:43] LABS: #Basophils 0.1 thou/uL (0.0-0.2); #Eosinphils 0.4 thou/uL (0.0-0.7); #Lymphocytes 4.6 thou/uL (1.20-3.40); #Neutrophils 4.5 thou/uL (1.40-6.50); %Basophils 0.7 % (0.0-1.0); %Eosinophils 3.7 % (0.0-10.0); %Monocytes 9.1 % (0.0-10.0); %Neutrophils 42.5 % (42.0-75.0); Hemoglobin 13.4 g/dL (14.0-18.0); Mean Corpuscular HGB CONC 31.5 g/dL (32.0-36.0); Mean Corpuscular Hemoglobin 29.5 pg (27.0-31.0); Mean Corpuscular Volume 93.8 fL (78.0-98.0); Mean Platelet Volume 6.2 fL (7.4-10.4); Platelet Count 524 thou/uL (130-400); Red Blood Cell (RBC) Count 4.53 mill/uL (4.70-6.10); White Blood Cell (WBC) Count 10.5 thou/uL (4.8-10.8)
[2021-08-20 10:02] LABS: Anion Gap 14 mmol/L (10-20); BUN (Urea Nitrogen) 16 mg/dL (8.4-25.7); Calc. Creatinine Clearance 167 mL/min (70-130); Calcium 9.8 mg/dL (7.8-10.44); Carbon Dioxide 30 mmol/L (22-29); Chloride 99 mmol/L (98-107); Glucose 122 mg/dL (70-105); Potassium 4.3 mmol/L (3.5-5.1); Sodium 139 mmol/L (136-145)
[2021-08-20 17:11] LABS: SARS-CoV-2 PCR by NAA Not Detected (NotDetected)
[2021-08-20] MEDS: Zolpidem Tartrate 5 MG TAB PO SCH (21:07)
[2021-08-20] MEDS: HYDROcodone/Acetaminophen 10/325 mg Tablet PO PRN (21:12)
[2021-08-21] MEDS: CEFAZOLIN 2 GM, Admixture Fee 1 EACH in Sodium Chloride 0.9% 100 ML IVPB SCH ×5 (00:05→18:18)
[2021-08-21] MEDS: Gabapentin 300 MG CAP PO SCH ×2 (08:37→21:21)
[2021-08-21] MEDS: cloNIDine 0.1 MG TAB PO SCH ×2 (08:37→21:20)
[2021-08-21] MEDS: Aspirin 81 mg Enteric Coated Tablet PO SCH (08:37)
[2021-08-21] MEDS: Losartan 25 MG TAB PO SCH (08:38)
[2021-08-21] MEDS: DULoxetine 60 MG CAP PO SCH (08:38)
[2021-08-21] MEDS: Hydrochlorothiazide 25 MG TAB PO SCH (08:38)
[2021-08-21] MEDS: Tamsulosin HCl 0.4 MG CAP PO SCH (08:38)
[2021-08-21] MEDS: Lantus 1000 UNITS/10 ML VIAL SC SCH ×2 (11:05→21:30)
[2021-08-21] MEDS: ceFAZolin Sodium/D5W 2 GM in Premix Bag 1 BAG IVPB SCH (11:08)
[2021-08-21 11:52] VITALS: BMI 34.6
[2021-08-21] MEDS: Zolpidem Tartrate 5 MG TAB PO SCH (21:28)
[2021-08-22] MEDS: CEFAZOLIN 2 GM, Admixture Fee 1 EACH in Sodium Chloride 0.9% 100 ML IVPB SCH ×3 (00:16→11:22)
[2021-08-22 08:14] VITALS: TEMP 98.1
[2021-08-22] MEDS: Aspirin 81 mg Enteric Coated Tablet PO SCH (08:17)
[2021-08-22] MEDS: Tamsulosin HCl 0.4 MG CAP PO SCH (08:17)
[2021-08-22] MEDS: cloNIDine 0.1 MG TAB PO SCH (08:17)
[2021-08-22] MEDS: Gabapentin 300 MG CAP PO SCH (08:19)
[2021-08-22] MEDS: Hydrochlorothiazide 25 MG TAB PO SCH (08:19)
[2021-08-22] MEDS: Losartan 25 MG TAB PO SCH (08:19)
[2021-08-22] MEDS: Lantus 1000 UNITS/10 ML VIAL SC SCH (08:20)
[2021-08-22] MEDS: DULoxetine 60 MG CAP PO SCH (08:20)
[2021-08-22 08:21] VITALS: BP 146/85
== END 2021-08-22 15:25 | disposition home or self-care (01) | DRG 854 ==
LOC: ERS 18:50 → T4-B 22:43
PROVIDERS: ADMIT Internal Medicine; ATTEND Internal Medicine
PROC: 0LB80ZZ Excision of Left Hand Tendon, Open Approach (ICD-10-PCS; principal; 2021-08-13)
PROC: 0PBV0ZZ Excision of Left Finger Phalanx, Open Approach (ICD-10-PCS; 2021-08-13)
PROC: 02HV33Z Insertion of Infusion Device into Superior Vena Cava, Percutaneous Approach (ICD-10-PCS; 2021-08-17)
PROC: 0PBV0ZZ Excision of Left Finger Phalanx, Open Approach (ICD-10-PCS; 2021-08-18)
DX: A41.9 Sepsis, unspecified organism (principal); L03.114 Cellulitis of left upper limb; Z20.822 Contact with and (suspected) exposure to COVID-19; M86.142 Other acute osteomyelitis, left hand; L08.9 Local infection of the skin and subcutaneous tissue, unspecified; D64.9 Anemia, unspecified; F17.220 Nicotine dependence, chewing tobacco, uncomplicated; N40.0 Benign prostatic hyperplasia without lower urinary tract symptoms; E11.42 Type 2 diabetes mellitus with diabetic polyneuropathy; E11.622 Type 2 diabetes mellitus with other skin ulcer; E11.69 Type 2 diabetes mellitus with other specified complication; L98.499 Non-pressure chronic ulcer of skin of other sites with unspecified severity; J45.909 Unspecified asthma, uncomplicated; G89.29 Other chronic pain; I10 Essential (primary) hypertension; F41.9 Anxiety disorder, unspecified; F32.A Depression, unspecified; Z89.112 Acquired absence of left hand; Z83.79 Family history of other diseases of the digestive system; Z79.82 Long term (current) use of aspirin; Z79.4 Long term (current) use of insulin; Z79.1 Long term (current) use of non-steroidal anti-inflammatories (NSAID); Z79.899 Other long term (current) drug therapy
CPT/HCPCS: 36415; 36416; 36569; 80048; 80053; 80202; 81003; 83605; 85025; 85610; 85730; 86140; 87040; 87070; 87077; 87086; 87147; 87186; 87205; 88304; 88305; 88307; 88311; 93005; 94760; 96365; 96367; 96375; C1751; C9363-KX-JC; J0690; J0692; J1100; J1170; J1644; J1815; J1885; J2175; J2250; J2270; J2370; J2405; J2550; J2704; J3010; J3370; J3490; J7050; S0020; U0003; U0005

== ENCOUNTER 2021-08-29 10:43 | Emergency (ER) | payer BC | END 2021-08-29 11:31 | disposition home or self-care (01) | LOC: ERS 10:43 | DX: T82.594A Other mechanical complication of infusion catheter, initial encounter (principal); I10 Essential (primary) hypertension; E11.9 Type 2 diabetes mellitus without complications; J45.909 Unspecified asthma, uncomplicated; Z87.891 Personal history of nicotine dependence; Z79.899 Other long term (current) drug therapy | CPT/HCPCS: 99283 ==

== ENCOUNTER 2021-10-01 14:33 | Inpatient (IN) | payer BC, OTHER ==
[2021-10-01 16:22] LABS: #Eosinphils 0.1 thou/uL (0.0-0.7); #Lymphocytes 3.3 thou/uL (1.20-3.40); #Monocytes 0.8 thou/uL (0.11-0.59); #Neutrophils 5.3 thou/uL (1.40-6.50); %Basophils 0.2 % (0.0-1.0); %Eosinophils 1.3 % (0.0-10.0); %Lymphocytes 34.5 % (21.0-51.0); %Monocytes 8.8 % (0.0-10.0); %Neutrophils 55.3 % (42.0-75.0); Hemoglobin 14.3 g/dL (14.0-18.0); Mean Corpuscular HGB CONC 32.7 g/dL (32.0-36.0); Mean Corpuscular Volume 91.6 fL (78.0-98.0); Mean Platelet Volume 6.7 fL (7.4-10.4); Platelet Count 279 thou/uL (130-400); RBC Distribution Width 12.4 % (11.5-14.5); Red Blood Cell (RBC) Count 4.77 mill/uL (4.70-6.10); White Blood Cell (WBC) Count 9.6 thou/uL (4.8-10.8)
[2021-10-01 16:47] LABS: ALT (SGPT) 15 U/L (8-55); AST (SGOT) 21 U/L (5-34); Alkaline Phosphatase 98 U/L (40-110); Anion Gap 12 mmol/L (10-20); BUN (Urea Nitrogen) 13 mg/dL (8.4-25.7); Bilirubin, Total 0.3 mg/dL (0.2-1.2); Calc. Creatinine Clearance 0 mL/min (70-130); Calcium 10.1 mg/dL (7.8-10.44); Carbon Dioxide 32 mmol/L (22-29); Chloride 97 mmol/L (98-107); Globulin 3.7 g/dL (2.4-3.5); Glucose 181 mg/dL (70-105); Potassium 4.3 mmol/L (3.5-5.1); Protein, Total 7.7 g/dL (6.0-8.3); Sodium 137 mmol/L (136-145)
[2021-10-01] MEDS ORDERED: Morphine 4 MG/ML VIAL SLOW IVP PRN (19:17)
[2021-10-01] MEDS ORDERED: traMADol HCl 50 MG TAB PO PRN (19:17)
[2021-10-01] MEDS ORDERED: Fentanyl 100 MCG/2 ML VIAL SLOW IVP PRN (19:17)
[2021-10-01] MEDS ORDERED: Acetaminophen 325 MG TAB PO PRN (19:17)
[2021-10-01] MEDS ORDERED: Ondansetron PF 4 MG/2 ML Vial SLOW IVP PRN (19:17)
[2021-10-01] MEDS ORDERED: Promethazine HCl 25 MG/ML VIAL IM PRN (19:17)
[2021-10-01] MEDS ORDERED: Meperidine HCl/PF 25 MG/ML VIAL IM PRN (19:21)
[2021-10-01 19:23] LABS: Lactic Acid 1.4 mmol/L (0.5-2.2)
[2021-10-01] MEDS ORDERED: Gentamicin Sulfate 80 MG in Premix Bag 1 BAG IVPB SCH (19:30)
[2021-10-01] MEDS ORDERED: Vancomycin 1.5 GRAM/300 ML BAG 1.5 GM in Premix Bag 1 BAG IVPB SCH (19:30)
[2021-10-01 20:30] LABS: SARS-CoV-2 NAA Rapid Test Not Detected (NotDetected)
[2021-10-01 20:38] VITALS: BMI 37.0
[2021-10-01] MEDS: Sodium Chloride 0.9% 1,000 ML IV SCH (21:22)
[2021-10-01] MEDS: Aspirin 81 mg Enteric Coated Tablet PO SCH (21:22)
[2021-10-01] MEDS ORDERED: Gentamicin 80 MG/2 ML VIAL IM SCH (22:00)
[2021-10-01] MEDS ORDERED: Zolpidem Tartrate 5 MG TAB PO SCH (23:30)
[2021-10-02] MEDS ORDERED: TETANUS AND DIPHTHERIA TOX/PF 0.5 ML DISP.SYRIN IM SCH (01:15)
[2021-10-02] MEDS: Gentamicin Sulfate 80 MG in Premix Bag 1 BAG IVPB SCH ×2 (04:59→15:00)
[2021-10-02] MEDS: Sodium Chloride 0.9% 1,000 ML IV SCH (05:46)
[2021-10-02] MEDS ORDERED: Dextrose 5% in Water 1,000 ML IV PRN (06:45)
[2021-10-02] MEDS ORDERED: Dextrose 50% Abboject 50 ML SYRINGE IVP PRN (06:45)
[2021-10-02] MEDS: HumaLOG 300 UNITS/3 ML VIAL SC PRN ×2 (06:52→13:02)
[2021-10-02] MEDS ORDERED: Aspirin 81 mg Enteric Coated Tablet PO SCH (09:00)
[2021-10-02] MEDS ORDERED: FLU VACC QS2021-22(6MOS UP)/PF 60 MCG/0.5 ML SYRINGE IM ONE (09:00)
[2021-10-02] MEDS ORDERED: Lantus 1000 UNITS/10 ML VIAL SC SCH ×2 (09:00→12:30)
[2021-10-02] MEDS ORDERED: VANCOMYCIN 2 GRAM/400 ML BAG 2 GM in Premix Bag 1 BAG IVPB SCH (09:00)
[2021-10-02] MEDS ORDERED: Hydrochlorothiazide 25 MG TAB PO SCH (09:00)
[2021-10-02] MEDS: metFORMIN 500 MG TAB PO SCH ×2 (10:38→18:10)
[2021-10-02] MEDS: Aspirin 81 mg Enteric Coated Tablet PO SCH ×2 (10:39→21:41)
[2021-10-02] MEDS: DULoxetine 60 MG CAP PO SCH (10:40)
[2021-10-02] MEDS: Gabapentin 300 MG CAP PO SCH ×2 (10:40→21:41)
[2021-10-02] MEDS: Losartan 25 MG TAB PO SCH (10:40)
[2021-10-02] MEDS: Tamsulosin HCl 0.4 MG CAP PO SCH (10:41)
[2021-10-02] MEDS ORDERED: BUPRENORPHINE SL SCH (12:30)
[2021-10-02] MEDS ORDERED: NALOXONE SL SCH (12:30)
[2021-10-02] MEDS ORDERED: ceFAZolin Sodium/D5W 2 GM in Premix Bag 1 BAG IVPB SCH (14:00)
[2021-10-02] MEDS: Cefepime 2 GM in Sodium Chloride 0.9% 100 ML IVPB SCH (20:16)
[2021-10-02] MEDS ORDERED: Vancomycin HCl 1.25 GM in Sodium Chloride 0.9% 250 ML 250 ML IVPB SCH (21:00)
[2021-10-02] MEDS: VANCOMYCIN 2 GRAM/400 ML BAG 2 GM in Premix Bag 1 BAG IVPB SCH (21:40)
[2021-10-02] MEDS: BUPRENORPHINE SL SCH (21:42)
[2021-10-02] MEDS: NALOXONE SL SCH (21:42)
[2021-10-02] MEDS: Zolpidem Tartrate 5 MG TAB PO SCH (21:42)
[2021-10-02] MEDS: Lantus 1000 UNITS/10 ML VIAL SC SCH (21:48)
[2021-10-03] MEDS: HumaLOG 300 UNITS/3 ML VIAL SC PRN (06:40)
[2021-10-03 08:48] LABS: Vancomycin, Trough 12.5 ug/mL
[2021-10-03] MEDS: Aspirin 81 mg Enteric Coated Tablet PO SCH ×2 (08:53→21:31)
[2021-10-03] MEDS: metFORMIN 500 MG TAB PO SCH (08:53)
[2021-10-03] MEDS: Losartan 25 MG TAB PO SCH (08:53)
[2021-10-03] MEDS: DULoxetine 60 MG CAP PO SCH (08:53)
[2021-10-03] MEDS: Tamsulosin HCl 0.4 MG CAP PO SCH (08:53)
[2021-10-03] MEDS: Gabapentin 300 MG CAP PO SCH ×2 (08:54→21:30)
[2021-10-03] MEDS: Lantus 1000 UNITS/10 ML VIAL SC SCH ×2 (08:55→21:32)
[2021-10-03] MEDS: VANCOMYCIN 2 GRAM/400 ML BAG 2 GM in Premix Bag 1 BAG IVPB SCH ×2 (08:56→21:35)
[2021-10-03] MEDS: NALOXONE SL SCH ×2 (10:09→21:31)
[2021-10-03] MEDS: BUPRENORPHINE SL SCH ×2 (10:09→21:31)
[2021-10-03] MEDS: Cefepime 2 GM in Sodium Chloride 0.9% 100 ML IVPB SCH ×2 (10:10→20:08)
[2021-10-03] MEDS: Zolpidem Tartrate 5 MG TAB PO SCH (21:31)
[2021-10-04] MEDS: HumaLOG 300 UNITS/3 ML VIAL SC PRN ×2 (00:37→06:24)
[2021-10-04 06:21] LABS: #Eosinphils 0.2 thou/uL (0.0-0.7); #Lymphocytes 2.7 thou/uL (1.20-3.40); #Monocytes 0.8 thou/uL (0.11-0.59); #Neutrophils 4.7 thou/uL (1.40-6.50); %Basophils 0.3 % (0.0-1.0); %Eosinophils 2.1 % (0.0-10.0); %Lymphocytes 32.3 % (21.0-51.0); %Neutrophils 56.4 % (42.0-75.0); Hemoglobin 13.6 g/dL (14.0-18.0); Mean Corpuscular Hemoglobin 30.7 pg (27.0-31.0); Mean Corpuscular Volume 92.9 fL (78.0-98.0); Mean Platelet Volume 6.7 fL (7.4-10.4); Platelet Count 250 thou/uL (130-400); RBC Distribution Width 12.1 % (11.5-14.5); Red Blood Cell (RBC) Count 4.44 mill/uL (4.70-6.10); White Blood Cell (WBC) Count 8.4 thou/uL (4.8-10.8)
[2021-10-04 06:43] LABS: Calc. Creatinine Clearance 206 mL/min (70-130)
[2021-10-04] MEDS: Aspirin 81 mg Enteric Coated Tablet PO SCH ×2 (09:21→21:44)
[2021-10-04] MEDS: VANCOMYCIN 2 GRAM/400 ML BAG 2 GM in Premix Bag 1 BAG IVPB SCH ×3 (09:22→23:11)
[2021-10-04] MEDS: Lantus 1000 UNITS/10 ML VIAL SC SCH ×2 (09:23→21:46)
[2021-10-04] MEDS: Losartan 25 MG TAB PO SCH (09:24)
[2021-10-04] MEDS: Tamsulosin HCl 0.4 MG CAP PO SCH (09:24)
[2021-10-04] MEDS: DULoxetine 60 MG CAP PO SCH (09:24)
[2021-10-04] MEDS: Gabapentin 300 MG CAP PO SCH ×2 (09:24→21:44)
[2021-10-04] MEDS: HYDROcodone/Acetaminophen 5/325 mg Tablet PO PRN ×2 (09:26→16:16)
[2021-10-04] MEDS: BUPRENORPHINE SL SCH ×2 (09:41→21:46)
[2021-10-04] MEDS: NALOXONE SL SCH ×2 (09:41→21:46)
[2021-10-04] MEDS: Cefepime 2 GM in Sodium Chloride 0.9% 100 ML IVPB SCH ×2 (13:24→21:45)
[2021-10-04 20:30] LABS: Vancomycin, Trough 16.3 ug/mL
[2021-10-04] MEDS: Zolpidem Tartrate 5 MG TAB PO SCH (21:44)
[2021-10-05 06:58] LABS: Calc. Creatinine Clearance 208 mL/min (70-130)
[2021-10-05] MEDS: Losartan 25 MG TAB PO SCH (09:37)
[2021-10-05] MEDS: DULoxetine 60 MG CAP PO SCH (09:37)
[2021-10-05] MEDS: Tamsulosin HCl 0.4 MG CAP PO SCH (09:37)
[2021-10-05] MEDS: Cefepime 2 GM in Sodium Chloride 0.9% 100 ML IVPB SCH (09:37)
[2021-10-05] MEDS: Aspirin 81 mg Enteric Coated Tablet PO SCH ×2 (09:38→21:27)
[2021-10-05] MEDS: Lantus 1000 UNITS/10 ML VIAL SC SCH ×2 (09:38→21:24)
[2021-10-05] MEDS: Gabapentin 300 MG CAP PO SCH ×2 (09:38→21:26)
[2021-10-05] MEDS: BUPRENORPHINE SL SCH ×2 (09:39→21:27)
[2021-10-05] MEDS: NALOXONE SL SCH ×2 (09:39→21:27)
[2021-10-05] MEDS: VANCOMYCIN 2 GRAM/400 ML BAG 2 GM in Premix Bag 1 BAG IVPB SCH (10:36)
[2021-10-05] MEDS ORDERED: Bupivacaine 0.25% 10 ML VIAL ONE (16:07)
[2021-10-05] MEDS ORDERED: Mineral Oil Sterile 10 ML VIAL ONE (16:07)
[2021-10-05] MEDS ORDERED: Bupivacaine PF 0.5% 30 ML VIAL ONE (16:07)
[2021-10-05] MEDS ORDERED: Thrombin 5000 UNITS/5 ML VIAL ONE (16:08)
[2021-10-05] MEDS ORDERED: Bacitracin Zinc Ointment 30 gm TUBE ONE (16:08)
[2021-10-05] MEDS ORDERED: Neomycin-Polymyxin 1 ML AMP ONE (16:08)
[2021-10-05] MEDS ORDERED: Fentanyl 100 MCG/2 ML VIAL ONE (16:27)
[2021-10-05] MEDS ORDERED: PROPOFOL 200 MG/20 ML VIAL ONE (16:48)
[2021-10-05] MEDS ORDERED: Lidocaine 1% PF 5 ML VIAL ONE (16:48)
[2021-10-05] MEDS ORDERED: Ketorolac Tromethamine 30 MG/ML VIAL ONE (16:48)
[2021-10-05] MEDS ORDERED: Ondansetron PF 4 MG/2 ML Vial ONE (16:48)
[2021-10-05] MEDS ORDERED: ePHEDrine 50 MG/ML VIAL ONE (16:48)
[2021-10-05] MEDS ORDERED: PACU-Morphine 4MG/ML VIAL SLOW IVP PRN (18:40)
[2021-10-05] MEDS ORDERED: Ondansetron HCl/PF 4 MG/2 ML Vial IVP PRN (18:40)
[2021-10-05] MEDS ORDERED: Meperidine HCl/PF 25 MG/ML VIAL SLOW IVP PRN (18:40)
[2021-10-05] MEDS ORDERED: Promethazine HCl 25 MG/ML VIAL IVPB PRN (18:40)
[2021-10-05] MEDS ORDERED: Morphine Sulfate 2 MG/ML SYRINGE SLOW IVP PRN (18:40)
[2021-10-05] MEDS ORDERED: HYDROmorphone 2 MG/ML VIAL SLOW IVP PRN (18:40)
[2021-10-05] MEDS ORDERED: Promethazine HCl 25 MG/ML VIAL IM PRN (18:40)
[2021-10-05] MEDS: Zolpidem Tartrate 5 MG TAB PO SCH (21:27)
[2021-10-05] MEDS: Cephalexin 250 MG CAP PO SCH (23:23)
[2021-10-06] MEDS: Cephalexin 250 MG CAP PO SCH (05:32)
[2021-10-06 06:00] LABS: Calc. Creatinine Clearance 217 mL/min (70-130)
[2021-10-06 08:07] LABS: Vancomycin, Trough 8.5 ug/mL
[2021-10-06] MEDS: DULoxetine 60 MG CAP PO SCH (08:17)
[2021-10-06] MEDS: Aspirin 81 mg Enteric Coated Tablet PO SCH (08:19)
[2021-10-06] MEDS: Gabapentin 300 MG CAP PO SCH (08:19)
[2021-10-06] MEDS: Losartan 25 MG TAB PO SCH (08:19)
[2021-10-06] MEDS: Tamsulosin HCl 0.4 MG CAP PO SCH (08:19)
[2021-10-06] MEDS: Lantus 1000 UNITS/10 ML VIAL SC SCH (08:20)
[2021-10-06 08:58] VITALS: BP 144/77; TEMP 98.1
[2021-10-06] MEDS: NALOXONE SL SCH (10:32)
[2021-10-06] MEDS: BUPRENORPHINE SL SCH (10:32)
[2021-10-08] MEDS ORDERED: DULAGLUTIDE SC SCH (09:00)
== END 2021-10-06 10:55 | DRG 857 ==
LOC: ERS 14:33 → EEVIPCON 19:17 → SURG A 19:17 → OBSVTOIN 10-02 13:16
PROVIDERS: ADMIT Orthopaedic Surgery Hand Surgery; ATTEND Internal Medicine
PROC: 0HRGX73 Replacement of Left Hand Skin with Autologous Tissue Substitute, Full Thickness, External Approach (ICD-10-PCS; principal; 2021-10-05)
PROC: 0HBEXZZ Excision of Left Lower Arm Skin, External Approach (ICD-10-PCS; 2021-10-05)
DX: T81.49XA Infection following a procedure, other surgical site, initial encounter (principal); M86.142 Other acute osteomyelitis, left hand; L03.012 Cellulitis of left finger; E11.69 Type 2 diabetes mellitus with other specified complication; Z20.822 Contact with and (suspected) exposure to COVID-19; I10 Essential (primary) hypertension; M54.9 Dorsalgia, unspecified; E11.40 Type 2 diabetes mellitus with diabetic neuropathy, unspecified; D64.9 Anemia, unspecified; E66.9 Obesity, unspecified; G89.29 Other chronic pain; Y83.8 Other surgical procedures as the cause of abnormal reaction of the patient, or of later complication, without mention of misadventure at the time of the procedure; Z79.82 Long term (current) use of aspirin; Z79.84 Long term (current) use of oral hypoglycemic drugs; Z79.4 Long term (current) use of insulin; Z79.899 Other long term (current) drug therapy; Z68.37 Body mass index [BMI] 37.0-37.9, adult; Z89.022 Acquired absence of left finger(s)
CPT/HCPCS: 36415; 36416; 80053; 80170; 80202; 82565; 83605; 85025; 87040; 87070; 87205; 96374; 96375; 96376; G0378; J0692; J1580; J1815; J1885; J2405; J2704; J3010; J3370; J3490; J7050; S0020; U0002